=== PATIENT | male | born 1970 | race Two or more races ===

== ENCOUNTER → 2024-05-16 | Outpatient (CLI) | payer BC, SELFPAY ==
[2024-05-16 08:51] LABS: Glucose Estimated Average 117 mg/dL (80-131); Hemoglobin A1C 5.7 % Hgb (4.8-6.0)
[2024-05-16 09:08] LABS: Cardiac Risk Estimate 4.2 RATIO (4.0-6.7); Cholesterol 209 mg/dL (132-200); HDL Cholesterol 50 mg/dL (40-60); LDL Cholesterol,Calculated 126 mg/dL (0-130); Triglycerides 165 mg/dL (30-150)
== END | disposition home or self-care (01) ==
LOC: COPL 07:22
PROVIDERS: PCP Nurse Practitioner Family; Referring Provider Nurse Practitioner Family; Visit Provider Nurse Practitioner Family
DX: E78.5 Hyperlipidemia, unspecified (principal); E11.9 Type 2 diabetes mellitus without complications
CPT/HCPCS: 36415; 80061; 83036